=== PATIENT | male | born 1965 | race Caucasian/White ===

== ENCOUNTER 2021-07-09 19:12 | Emergency (ER) | payer BC ==
[~2021-07-09] VITALS: Ht 177.8 cm; Wt 99.8 kg
[2021-07-09 20:32] LABS: ABSOLUTE NEUTROPHILS 6.5 thou/uL (1.4-8.2); BASOPHILS 0.3 % (0.0-2.0); EOSINOPHILS 1.6 % (0.0-3.0); HEMATOCRIT 45.3 % (42.0-52.0); HEMOGLOBIN 15.2 gm/dL (14.0-18.0); MCH 29.9 pg (26.0-34.0); MCHC 33.5 g/dL (28.0-37.0); MCV 89.1 fL (80.0-100.0); MONOCYTES 7.8 % (1.0-8.0); PLATELET COUNT 237 thou/uL (150-400); POLYS 73.3 % (36.0-66.0); RBC 5.08 mil/uL (4.50-6.00); RDW 14.7 % (10.5-14.5); WBC 8.9 thou/uL (4.0-11.0)
[2021-07-09 20:39] LABS: CALCIUM 8.6 mg/dL (8.5-10.1)
[2021-07-09] MEDS ORDERED: ONDANSETRON HCL4 M2 PO (21:56)
[2021-07-09] MEDS ORDERED: NAPROSYN500 MG PO (21:56)
[2021-07-09 22:54] VITALS: BP 148/88
--- NOTE | 2021-07-10 07:30 | EKG ---
[place] [address] [facility] [place] [address] ELECTROCARDIOGRAM REPORT Name: BRANDON MOSHERANE Room #: DEP [facility] [place]#: [id number] Admission: 07/09/21 Attend Phys: Discharge: 07/09/21 Date of : 65 Report #: [id number] [facility] ED Test Date: 2021-07-09 Test Time: 19:40:31 Pat Name: BRANDON MOSHER Department: Room: Gender: [employer]: [facility] : 1965 Requested By: Morgan Henriquez Order Number: [id number] MD: John Dorman Measurements Intervals [place] Rate: 69 P: -8 VA: 166 QRS: 33 QRSD: 96 T: 6 QT: 380 QTc: 407 Interpretive Statements Sinus rhythm Baseline wander in lead(s) V2 No previous ECG available for comparison Electronically Signed On 07-10-2021 7:30:17 CDT by John Dorman [email or web address] <ELECTRONICALLY SIGNED> By: John Dorman MD, [facility] 07/10/21 0730 39 39 John Dorman MD, FACC /EPI
== END 2021-07-09 22:54 | disposition home or self-care (01) ==
LOC: ER 19:12
PROVIDERS: Emergency Medicine
DX: R51.9 Headache, unspecified (principal); E03.9 Hypothyroidism, unspecified; E78.00 Pure hypercholesterolemia, unspecified